=== PATIENT | male | born 1985 | race Caucasian/White ===

== ENCOUNTER 2019-06-11 16:53 | Emergency (ER) | payer OTHER ==
[~2019-06-11] VITALS: Ht 157.5 cm; Wt 86.2 kg
== END 2019-06-11 20:14 | disposition home or self-care (01) ==
LOC: ER 16:53
DX: J02.8 Acute pharyngitis due to other specified organisms (principal); R50.9 Fever, unspecified

== ENCOUNTER 2021-06-25 21:09 | Outpatient (CLI) | payer OTHER | END 2021-06-25 22:00 | disposition home or self-care (01) | LOC: LAB 21:09 | PROVIDERS: ATTEND Obstetrics & Gynecology | DX: Z20.818 Contact with and (suspected) exposure to other bacterial communicable diseases (principal) ==